=== PATIENT | male | born 1975 | race Caucasian/White ===

== ENCOUNTER → 2017-04-10 | Outpatient (CLI) | payer BC | END | disposition home or self-care (01) | LOC: GMA 11:13 | PROVIDERS: ATTEND Physician Assistant | DX: M79.662 Pain in left lower leg (principal) ==

== ENCOUNTER → 2017-04-10 | Outpatient (CLI) | payer SELFPAY ==
--- NOTE | 2017-04-10 16:08 | US ---
EXAM DESCRIPTION: Venous,Lower Extremity LT CLINICAL HISTORY: 41 years, Male, PAIN IN LEFT LOWER LEG COMPARISON: FINDINGS: The left common femoral, superficial femoral, deep femoral, popliteal, posterior tibial and peroneal veins identified. Appropriate flow compressibility and augmentation. IMPRESSION: No evidence deep venous thrombosis left lower extremity. Electronically signed by: Herber Royal MD 04/10/2017 4:06 PM CDT
== END | disposition home or self-care (01) ==
LOC: US 11:13
PROVIDERS: ATTEND Physician Assistant
DX: M79.662 Pain in left lower leg (principal)

== ENCOUNTER → 2017-04-21 | Outpatient (CLI) | payer SELFPAY ==
--- NOTE | 2017-04-22 12:36 | MRI ---
MRI left tib-fib/calf without contrast INDICATION: Muscle strain calf swelling no specific injury remote ACL repair 2000 TECHNIQUE: Noncontrast MR imaging left calf standard protocol FINDINGS: There is a large dissecting complicated multilocular Hong's cyst extending from the knee to the mid calf with diffuse adjacent soft tissue edema. This measures over 15 cm craniocaudal. No pronounced methemoglobin within this. There is also edema along the myocutaneous fascia laterally along the fibular side of the calf. Diffuse subcutaneous edema suggests cellulitis. A superimposed inflammatory process is not excludable. There is also an adjacent strain of the medial head gastrocnemius. There is a fluid fluid level in the calf veins likely due to slow flow. There is no perivascular edema or deep muscle edema to suggest DVT. A venous Doppler sonogram has been performed. No definite evidence of compartment syndrome. No osseous destruction. Limited assessment of the knee with relatively vertical appearing ACL graft continuous in appearance. IMPRESSION: Partially ruptured dissecting Hong's cyst from the knee into the mid calf with diffuse soft tissue swelling and possible cellulitis correlate with any signs of infectious inflammatory process superimposed Adjacent strain of the medial head gastrocnemius Fluid fluid levels in the calf veins suggesting slow flow with recent venous Doppler sonogram Previous ACL reconstruction with continuous relatively vertical ACL graft partially visualized Electronically signed by: Tito Lee MD 04/22/2017 12:35 PM CDT
== END | disposition home or self-care (01) ==
LOC: MRI 08:57
PROVIDERS: ATTEND Family Medicine
DX: S86.812A Strain of other muscle(s) and tendon(s) at lower leg level, left leg, initial encounter (principal); X58.XXXA Exposure to other specified factors, initial encounter

== ENCOUNTER → 2017-04-25 | Outpatient (CLI) | payer BC | END | disposition home or self-care (01) | LOC: GMAJ 10:54 | PROVIDERS: ATTEND Family Medicine | DX: M15.8 Other polyosteoarthritis (principal) ==